=== PATIENT | male | born 1980 | race Caucasian/White ===

== ENCOUNTER 2022-11-05 12:35 | Emergency (ER) | payer OTHER ==
[~2022-11-05] VITALS: Ht 182.9 cm; Wt 74.8 kg
[2022-11-05 12:50] VITALS: BP_SYST 112
--- NOTE | 2022-11-05 13:12 | NUR ---
[facility]
--- NOTE | 2022-11-05 13:27 | NUR ---
Patient being evaluated by physician at bedside.
[2022-11-05] MEDS ORDERED: NACL 0.9% 1,000 ML IV SCH (13:35)
--- NOTE | 2022-11-05 13:35 | NUR ---
ESCORTED TO BR, UNSTEADY, VOIDED A LOT OF URINE, STAFF COLLECTED SAMPLE
[2022-11-05] MEDS ORDERED: HALOPERIDOL IM 5 MG/ML VIAL IM ONE (13:55)
[2022-11-05] MEDS ORDERED: LORazepam 2 MG/ML VIAL IM ONE (13:55)
[2022-11-05] MEDS ORDERED: HALOPERIDOL IM 5 MG/ML VIAL ONE (13:56)
[2022-11-05] MEDS ORDERED: LORazepam 2 MG/ML VIAL ONE (13:57)
--- NOTE | 2022-11-05 14:02 | NUR ---
PT AMBULATES UNSTEADY AND CONFUSED, REPETITIVE QUESTIONS OF LAYING DOWN BUT KEEPS WALKING AIMLESSLY. WALKED OUT THROUGH AMBULANCE BAY, IGNORES ORIENTATION QUESTIONS AND TOLD BY STAFF IT IS UNSAFE TO WALK OUT INTO THE STREETS BEING CONFUSED AND POSSIBLY INTOXICATED. ESCORTED BACK TO ED, PT STARTED FIGHTING WITH STAFF. STAFF ASSISTED PT TO KAVITA CASTELLANO UNSTABLE GAIT
[2022-11-05 14:28] LABS: BARBITURATE, URINE NEGATIVE ng/ml (NEG <=200); BENZODIAZEPINE, URINE NEGATIVE ng/mL (NEG <=200); CANNABINOID, URINE POSITIVE ng/mL (NEG <=50); COCAINE, URINE NEGATIVE ng/mL (NEG <=300); OPIATE, URINE NEGATIVE ng/mL (NEG <=2000); PHENCYCLIDINE SCREEN,URINE NEGATIVE ng/mL (NEG <=25)
--- NOTE | 2022-11-05 14:38 | NUR ---
LUCILA CALLED ON HIS PHONE, GAVE PARENT'S NUMBERS WHO LIVE NEARBY. NATALIA-[phone] AND CHERYL [phone]
[2022-11-05 15:30] LABS: BASOPHILS # (AUTO) 0.1 K/uL (0.00-0.22); EOSINOPHILS % (AUTO) 0.4 % (0.0-4.0); HEMATOCRIT 45.9 % (36-52); HEMOGLOBIN 15.9 g/dL (12.0-18.0); LYMPHOCYTES # (AUTO) 1.1 K/uL (2.0-11.5); LYMPHOCYTES % (AUTO) 14.1 % (20.5-51.1); MEAN CORPUSCULAR HEMOGLOBIN 32 pg (27-31); MEAN CORPUSCULAR HGB CONC 35 g/dL (33-37); MEAN CORPUSCULAR VOLUME 93.1 fL (80-94); MONOCYTES # (AUTO) 0.3 K/uL (0.8-1.0); NEUTROPHILS # (AUTO) 6.4 K/uL (1.8-7.7); NEUTROPHILS % (AUTO) 80.5 % (42.2-75.2); PLATELET COUNT (AUTO) 252 K/uL (140-450); RED BLOOD CELL COUNT(AUTO) 4.93 MIL/uL (4.20-6.10); RED CELL DISTRIBUTION WIDTH 12.8 % (11.6-13.7)
[2022-11-05 15:40] LABS: ACETONE, SERUM NEGATIVE (NEGATIVE)
[2022-11-05 16:02] LABS: ALBUMIN 4.5 g/dL (3.4-5.0); ASPARTATE AMINOTRANSFERASE 21 U/L (15-37); CARBON DIOXIDE 25.2 mmol/L (21-32); CHLORIDE 108 mmol/L (98-107); CREATININE 0.8 mg/dL (0.6-1.3); GFR ARICAN-AMERICAN 137 mL/min (>90); GLUCOSE 110 mg/dL (74-106); POTASSIUM 3.2 mmol/L (3.5-5.1); SODIUM SERUM 146 mmol/L (136-145); TOTAL BILIRUBIN 0.5 mg/dL (0.0-1.0); UREA NITROGEN, BLOOD 5 mg/dL (7-18)
[2022-11-05 16:14] LABS: ACETAMINOPHEN < 0.5 ug/ml (10-30)
[2022-11-05] MEDS ORDERED: ZIPRASIDONE MESYLATE 20 MG/ML VIAL IM ONE (16:30)
[2022-11-05] MEDS ORDERED: WATER STERILE 10 ML MC ONE (16:33)
--- NOTE | 2022-11-05 18:53 | NUR ---
PT REMOVED ALL MONITOR CABLES, TRIED TO GET OUT OF BED BUT STOPPED WHEN STAFF REMINDED HIM HE WAS TOO INTOXICATED TO BE UP AND ABOUT. PT WENT BACK TO SLEEP
--- NOTE | 2022-11-05 19:17 | NUR ---
Report given to [facility] for transfer of care.
--- NOTE | 2022-11-05 19:29 | NUR ---
Dr. Singletary assessing patient.
--- NOTE | 2022-11-05 19:35 | NUR ---
Patient resting in bed, alert and awake, chest rise and fall symmetrical, no c/o pain or s/s of distress, on monitor.
--- NOTE | 2022-11-05 19:58 | NUR ---
Patient's father/emergency contact, has arrived to pick patient up. Patient resting in bed, A/Ox4, chest rise and fall symmetrical, no c/o pain or s/s of distress, on monitor, father at bedside.
[2022-11-05 20:02] VITALS: BP 136/89
--- NOTE | 2022-11-05 20:02 | NUR ---
Patient discharged with v/s stable. Written and verbal after care instructions given and explained. Patient verbalized understanding. Ambulatory with steady gait. All questions addressed prior to discharge. Advised to follow up with PMD.
== END 2022-11-05 20:02 | disposition home or self-care (01) ==
LOC: MED 12:35
DX: R41.82 Altered mental status, unspecified (principal); F10.129 Alcohol abuse with intoxication, unspecified; Y90.9 Presence of alcohol in blood, level not specified
CPT/HCPCS: 36415; 70450; 80053; 80305; 82009; 82550; 83605; 85025; 87040; 87086; 96360; 96372; 99285; G0480; G0482; J1630; J2060; J3486; J7030

== ENCOUNTER 2023-11-15 14:22 | Emergency (ER) | payer OTHER ==
[~2023-11-15] VITALS: Ht 182.9 cm; Wt 90.7 kg
[2023-11-15 14:25] VITALS: BP 118/51; PULSE 107; RESP 19; TEMP 98.9; O2SAT 93
[2023-11-15 15:27] VITALS: BP 131/67; PULSE 71; RESP 18; TEMP 97.3; O2SAT 94
== END 2023-11-15 15:28 ==
LOC: MED 14:22
DX: Z02.89 Encounter for other administrative examinations (principal)
CPT/HCPCS: 99283